=== PATIENT | male | born 1950 | race Caucasian/White ===

== ENCOUNTER 2017-09-16 10:48 | Inpatient (IN) | payer OTHER ==
[~2017-09-16] VITALS: Ht 167.6 cm; Wt 80.7 kg
[~2017-09-16 10:48] MED LIST: PANADOL EXTRA500 MG
[2017-09-20] MEDS ORDERED: ZANTAC150 M3 PO (08:54)
[2017-09-20] MEDS ORDERED: NORFLEX PO (08:55)
[2017-09-20] MEDS ORDERED: ANORO ELLIPTA1 EACH IH (08:55)
[2017-09-20] MEDS ORDERED: ATROVENT HFA12.9 GM IH (08:56)
[2017-09-24] MEDS ORDERED: DOCUSATE SODIU100 MG PO (10:16)
[2017-09-24] MEDS ORDERED: CLONAZEPAM1 MG PO (10:17)
[2017-09-24] MEDS ORDERED: PERCOCET 5-3251 EACH PO (10:17)
== END 2017-09-24 12:15 | disposition home or self-care (01) | DRG 455 ==
LOC: O/R 09-23 04:35 → PED 09-23 04:35 → O/R 09-23 07:00 → PED 09-23 10:38
PROVIDERS: Orthopaedic Surgery Orthopaedic Surgery of the Spine
PROC: 0RG2071 Fusion of 2 or more Cervical Vertebral Joints with Autologous Tissue Substitute, Posterior Approach, Posterior Column, Open Approach (ICD-10-PCS; 2017-09-23)
PROC: 0RT30ZZ Resection of Cervical Vertebral Disc, Open Approach (ICD-10-PCS; 2017-09-23)
PROC: 07DS3ZZ Extraction of Vertebral Bone Marrow, Percutaneous Approach (ICD-10-PCS; 2017-09-23)
PROC: 0RG20A0 Fusion of 2 or more Cervical Vertebral Joints with Interbody Fusion Device, Anterior Approach, Anterior Column, Open Approach (ICD-10-PCS; principal; 2017-09-23 07:00)
DX: M50.01 Cervical disc disorder with myelopathy, high cervical region (principal); J44.9 Chronic obstructive pulmonary disease, unspecified; E11.9 Type 2 diabetes mellitus without complications

== ENCOUNTER 2018-04-04 09:33 | Outpatient (CLI) | payer OTHER ==
[~2018-04-04 09:33] MED LIST changes: +ANORO ELLIPTA1 EACH IH; +ATROVENT HFA12.9 GM IH; +CLONAZEPAM1 MG PO; +DOCUSATE SODIU100 MG PO; +NORFLEX PO; +PERCOCET 5-3251 EACH PO; +ZANTAC150 M3 PO
== END 2018-04-04 09:39 | disposition home or self-care (01) ==
LOC: RAD 09:33
DX: M50.30 Other cervical disc degeneration, unspecified cervical region (principal); Z98.1 Arthrodesis status